=== PATIENT | male | born 1965 | race Caucasian/White ===

== ENCOUNTER → 2020-04-22 | Outpatient (CLI) | payer BC ==
[2020-04-22 11:19] LABS: BUN/CREATININE RATIO 13 (0-10)
[2020-04-23 11:13] LABS: HBSAG SCREEN Negative (Negative); HEP A AB, IGM Negative (Negative); HEP B CORE AB, IGM Negative (Negative); HEP C VIRUS AB 0.1 (0.0-0.9)
== END ==
LOC: LAB 09:49
PROVIDERS: Family Medicine
DX: R79.89 Other specified abnormal findings of blood chemistry (principal); E78.2 Mixed hyperlipidemia
CPT/HCPCS: 36415; 80053; 80061; 80074

== ENCOUNTER → 2021-06-30 | Outpatient (CLI) | payer BC | LOC: DTC 09:08 | DX: E11.65 Type 2 diabetes mellitus with hyperglycemia (principal); Z71.3 Dietary counseling and surveillance | CPT/HCPCS: G0109 ==